=== PATIENT | male | born 1965 ===

== ENCOUNTER 2025-02-02 05:53 | Day surgery (SDC) | payer BC ==
[~2025-02-02] VITALS: Ht 165.1 cm; Wt 76.0 kg
[2025-02-02] VITALS (9 sets, daily range): BP systolic 119–130; BP diastolic 85–97
[2025-02-02] MEDS ORDERED: CeFAZolin Sodium 2,000 MG in NS 100 ML IV SCH (06:15)
[2025-02-02] MEDS ORDERED: CeFAZolin Sodium 2,000 MG VIAL ONE (06:43)
[2025-02-02] MEDS ORDERED: Bupivacaine 0.5% HCl 5 MG/ML 30MLVIAL ONE (07:06)
[2025-02-02] MEDS ORDERED: Rocuronium Bromide 10 MG/ML 5ML Injection IV ONE ×2 (07:26→08:21)
[2025-02-02] MEDS ORDERED: Ketorolac Tromethamine 30mg Vial ONE (07:26)
[2025-02-02] MEDS ORDERED: Ondansetron HCl 2 MG / ML 2ML Vial ONE (07:26)
[2025-02-02] MEDS ORDERED: Dexamethasone Sod Phos 10 MG/ML 1ML VIAL ONE (07:26)
[2025-02-02] MEDS ORDERED: FentaNYL Citrate 50 MCG/ML 2 ML Injection ONE (07:26)
--- NOTE | 2025-02-02 07:28 | NUR ---
History, Chart, Medications and Allergies reviewed before start of procedure.Lungs clear T/O to Auscultation. Patient confirms NPO status and agrees with scheduled surgery. Pre-Op teaching done. Pt verbalizes understanding.FIANCE AT SIDE
[2025-02-02] MEDS ORDERED: FentaNYL Citrate 50 MCG/ML 2 ML Injection IV PRN (07:50)
[2025-02-02] MEDS ORDERED: Albuterol 2.5 MG/3 ML VIAL INH PRN (07:50)
[2025-02-02] MEDS ORDERED: HYDROmorphone HCl/Pf 1MG SYR IV PRN (07:50)
[2025-02-02] MEDS ORDERED: Prochlorperazine Edisylate 10 mg Vial IV PRN (07:55)
[2025-02-02] MEDS ORDERED: Sugammadex Sodium 200 MG/2ML SDV (100 MG/ML) ONE (09:09)
[2025-02-02] MEDS ORDERED: OxyCODONE 5 mg/Acetamin 325 mg TABLET PO PRN (09:55)
--- NOTE | 2025-02-02 10:09 | NUR ---
REPORT RECEIVED FROM TK RICHTER. VSS. PT ON RA. PT A&OX4. PT ABLE TO REPOSITION SELF IN BED. PT REQUESTING PO FLUIDS AND TOLERATING THEM WELL. PT DENIES PAIN, NAUSEA OR OTHER DISCOMFORTS. PT HAS 2 SURGICAL SITES COVERED WITH DERMABOND ON ABD THAT ARE CDI. PT ALSO HAS GAUZE/TEGADERM TO UMBILICAL THAT IS CDI.
--- NOTE | 2025-02-02 10:40 | NUR ---
Patient up to Ambulate independently. Gait steady. VSS AND CONSISTENT WITH PT BASELINE. PT HAS NO COMPLAINTS AND VERBALIZES READINESS TO GO HOME. Discharge instructions reviewed with patient AND HIS FIANCE. Patient verbalizes understanding. Copy given to patient to take home. Dressing to procedure site clean, dry, intact with no visible drainage, swelling, erythema or bruising noted. Patient States Post-Procedure ride home has been arranged. Discharged via wheelchair to private car for ride home. PT BELONGINGS RETURNED TO PT.
== END 2025-02-02 10:42 | disposition home or self-care (01) ==
LOC: ORSCMMR 05:53 → ORD 07:30 → ORSCMMR 07:30
PROVIDERS: Surgery
PROC: 0YU84JZ Supplement Left Femoral Region with Synthetic Substitute, Percutaneous Endoscopic Approach (ICD-10-PCS; principal; 2025-02-02 07:30)
PROC: 0WQF0ZZ Repair Abdominal Wall, Open Approach (ICD-10-PCS; principal; 2025-02-02 07:30)
PROC: 0WUF4JZ Supplement Abdominal Wall with Synthetic Substitute, Percutaneous Endoscopic Approach (ICD-10-PCS; principal; 2025-02-02 07:30)
PROC: 0YU64JZ Supplement Left Inguinal Region with Synthetic Substitute, Percutaneous Endoscopic Approach (ICD-10-PCS; principal; 2025-02-02 07:30)
PROC: 8E0W4CZ Robotic Assisted Procedure of Trunk Region, Percutaneous Endoscopic Approach (ICD-10-PCS; principal; 2025-02-02 07:30)
DX: K40.30 Unilateral inguinal hernia, with obstruction, without gangrene, not specified as recurrent (principal); K41.30 Unilateral femoral hernia, with obstruction, without gangrene, not specified as recurrent; K45.8 Other specified abdominal hernia without obstruction or gangrene; K42.0 Umbilical hernia with obstruction, without gangrene
CPT/HCPCS: C1781; J0690; J1100; J1885; J2405; J2704; J3010; J7120